=== PATIENT | male | born 1970 | race African-American/Black ===

== ENCOUNTER 2020-01-05 18:23 | Emergency (ER) | payer SELFPAY ==
[~2020-01-05] VITALS: Ht 182.9 cm; Wt 70.3 kg
--- NOTE | 2020-01-05 18:28 | NUR ---
Pt c/o right shoulder pain x 1 week, 5/10 when crossing arms. Also c/o right side facial numbness x a few days, denies changes in vision or hearing, face symetrical. Pt denies CP, SOB, dizziness, n/v, no other complaints, no distress noted.
--- NOTE | 2020-01-05 19:00 | NUR ---
MD Ward noted aat bedside for MSE, no signs of distress noted at this time
--- NOTE | 2020-01-05 19:08 | NUR ---
Patient discharged to home in stable condition. Noted ambulating with steady gait, no signs of distress noted. Written and verbal after care instructions given. Patient verbalizes understanding of instructions. Stressed follow up or return to ER for worsening s/s.
[2020-01-05 19:11] VITALS: BP 118/80
== END 2020-01-05 19:08 | disposition home or self-care (01) ==
LOC: ER 18:26
DX: M54.12 Radiculopathy, cervical region (principal); E11.9 Type 2 diabetes mellitus without complications
CPT/HCPCS: A4663